=== PATIENT | male | born 1980 | race Caucasian/White ===

== ENCOUNTER 2020-07-07 12:04 | Day surgery (SDC) | payer MEDICAID, SELFPAY ==
--- NOTE | 2020-07-06 08:51 | HO.ANESPROP2 ---
Documented by User: Ariana Acevedo 07/06/20 09:10 HPI - Anesthesia Eval Consult details Narrative: 40yo M for EGD and Colonoscopy: unintentional weight loss PMFSH Past Medical History Medical History Back pain Bronchitis WICK (dyspnea on exertion) GERD (gastroesophageal reflux disease) Hyperkalemia Hypertension Palpitations Surgical History Surgical History H/O lumbosacral spine surgery Social History Social History Smoking Status: Former smoker Smoked in Last 30 Days: No Smoking Quit Date: 7 months ago Use of substances other than those prescribed or required for medical reasons: No Advance Directives: No Advance Directives Information Provided: No Meds Allergies Allergy/AdvReac Type Severity Reaction Status Date / Time tramadol [TRAMADOL] Allergy Unknown Gastrointestinal Unverified 07/07/20 12:35 Upset amoxicillin Allergy Rash Verified 07/07/20 12:36 toradol Allergy Unknown Gastrointestinal Uncoded 07/07/20 12:35 Upset Home Medications Medication Instructions Recorded Confirmed Type albuterol sulfate 2 puff INHALATION Q4-6H PRN 07/06/20 07/06/20 History bupropion HCl 150 mg PO BID 07/06/20 07/06/20 History cetirizine 10 mg PO DAILY 07/06/20 07/06/20 History cyclobenzaprine 10 mg PO TID 07/06/20 07/06/20 History fluticasone propionate [Flonase 1 spray INTRANASAL DAILY 07/06/20 07/06/20 History Allergy Relief] fluticasone propionate [Flovent 1 puff INHALATION BID 07/06/20 07/06/20 History HFA] lisinopril 5 mg PO DAILY 07/06/20 07/06/20 History nabumetone 750 mg PO BID 07/06/20 07/06/20 History omeprazole 20 mg PO BID 07/06/20 07/06/20 History oxycodone-acetaminophen [Percocet] 1 tab PO BID PRN 07/06/20 07/06/20 History Exam Exam Date and Time: July 06, 2020 0851 Assessment and Plan Assessment Anesthesia Assessment: Chart Reviewed Documented by User: John Garces MD 07/07/20 13:15 PMFSH Past Medical History Medical History Back pain Bronchitis WICK (dyspnea on exertion) GERD (gastroesophageal reflux disease) Hyperkalemia Hypertension Palpitations Surgical History Surgical History H/O lumbosacral spine surgery Social History Social History Smoking Status: Former smoker Smoked in Last 30 Days: No Smoking Quit Date: 7 months ago Use of substances other than those prescribed or required for medical reasons: No Advance Directives: No Advance Directives Information Provided: No Meds Allergies Allergy/AdvReac Type Severity Reaction Status Date / Time tramadol [TRAMADOL] Allergy Unknown Gastrointestinal Unverified 07/07/20 12:35 Upset amoxicillin Allergy Rash Verified 07/07/20 12:36 toradol Allergy Unknown Gastrointestinal Uncoded 07/07/20 12:35 Upset Home Medications Medication Instructions Recorded Confirmed Type albuterol sulfate 2 puff INHALATION Q4-6H PRN 07/06/20 07/06/20 History bupropion HCl 150 mg PO BID 07/06/20 07/06/20 History cetirizine 10 mg PO DAILY 07/06/20 07/06/20 History cyclobenzaprine 10 mg PO TID 07/06/20 07/06/20 History fluticasone propionate [Flonase 1 spray INTRANASAL DAILY 07/06/20 07/06/20 History Allergy Relief] fluticasone propionate [Flovent 1 puff INHALATION BID 07/06/20 07/06/20 History HFA] lisinopril 5 mg PO DAILY 07/06/20 07/06/20 History nabumetone 750 mg PO BID 07/06/20 07/06/20 History omeprazole 20 mg PO BID 07/06/20 07/06/20 History oxycodone-acetaminophen [Percocet] 1 tab PO BID PRN 07/06/20 07/06/20 History Exam Airway Mallampati Class: II TM Dist: >3cm Neck ROM: Full Loose/Missing/Broken Teeth: No Heart: rrr Lungs: nl Other: ao Assessment and Plan Assessment Anesthesia Assessment: Anesthesia Plan Discussed and Chart Reviewed Final Anesthetic Review NPO: Yes ASA Class: II Final Preanesthetic Review: No Changes in Pt Med Stat, Meds/Allgs Chart Reviewed, Consent Obtained/Reviewed and Anes Risks/Benef Reviewed Patient Risk: Low Procedure Risk: Low Anesthetic Plan Anesthetic Plan: MAC: Disposition: Standard PACU
[2020-07-07 12:22] VITALS: BP 124/80; PULSE 94; RESP 16; TEMP 36.8; O2SAT 98; BMI 28.5
[2020-07-07] MEDS: Lactated Ringers 1,000 ML 100 ML IVCONT (12:41)
--- NOTE | 2020-07-07 12:42 | MHC.SHP ---
Pre-Procedural Eval Section B Chief Complaint: Weight Loss, Epigastric Pain Relevant Family History (Specify if Yes): No Relevant Social History: None Present Medications: see Short Stay Collaborative assessment Medical History: Significant History (HTN, knee pain) History of Previous Operations: Relevant previous surgery/procedure and date(s) (back surgerym, umbilical hernia repair) Allergies: Allergies Allergy/AdvReac Type Severity Reaction Status Date / Time tramadol [TRAMADOL] Allergy Unknown Gastrointestinal Unverified 07/07/20 12:35 Upset amoxicillin Allergy Rash Verified 07/07/20 12:36 toradol Allergy Unknown Gastrointestinal Uncoded 07/07/20 12:35 Upset Review of Systems Sugical H&P ROS: Negative: Constitution, Cardiovascular, Respiratory, Neurological, Psychiatric, Hem-Onc, Allergic/Immunologic, Gastrointestinal, Genitourinary, Musculoskeletal, Integumentary, Endocrine and Eyes/Ears/Nose/Throat Exam Surgical H&P Exam: Normal: HEENT, Normal: Heart, Normal: Lungs, Normal: Extremities, Normal: Abdomen, Normal: Skin and Normal: Neurological Plan Diagnosis/Plan: Unchanged Patient has been examined and remains a candidate for the planned procedure
--- NOTE | 2020-07-07 13:26 | PM.OP ---
Brief Operative Note Date of procedure: 07/07/20 Pre-op diagnosis: epigastric pain, reflux, altered bowel habit, weight loss Post-op diagnosis: same Procedure: egd,colon see op note Surgeon: Shantal Joshi MD Anesthesia: MAC Estimated blood loss (mL): 0 Condition: stable Disposition: PACU
--- NOTE | 2020-07-07 13:27 | P.OP_ITS ---
Operative Note Operative Note Narrative: Operative Information Procedure Description: EGD, Colonoscopy FLEXIBLE TRANSORAL UPPER GASTROINTESTINAL ENDOSCOPY AND COLONOSCOPY PROCEDURE NOTE UPPER ENDOSCOPY Consent: Indications for the procedure and potential complications of bleeding, perforation, reaction to medications and missed diagnosis were discussed with the patient and informed consent was obtained. Instrument: Olympus GIF H 190 J mid size upper endoscope Monitoring: Vital signs and clinical assessment, continuous EKG monitoring, Pulse oximetry, Carbon Dioxide monitoring and blood pressure monitoring were done throughout the procedure. Procedure: The patient was placed in the left lateral decubitis position and pre-procedure medications were administered and a bite block was placed. The endoscope was inserted into the mouth and advanced under direct vision to the third part of duodenum. A careful inspection was made as the upper endoscope was withdrawn including a retroflexed examination of the proximal stomach; Findings and interventions are described below. Findings: Larynx:normal Esophagus: GE junction at 40 cm, diaphragm hiatus at 40 cm, salmon pink mucosa consistent with barretts esophagus, short segment length about 2 cm, bx taken. small esophageal inlet patch seen, Stomach: Patchy erythema. Biopsies were obtained. Grade 2 flap valve on retroflexed examination of the cardia. Duodenum: duodenitis, bx taken Intervention: Biopsies as noted above COLONOSCOPY Instrument: Olympus variable stiffness pediatric scope 190L Colonoscopy Monitoring: Vital signs and clinical assessment, continuous EKG monitoring, Pulse oximetry, Carbon Dioxide monitoring and blood pressure monitoring were done throughout the procedure. Colon withdrawal time was 10 minutes. Procedure: The patient was placed in the left lateral decubitis position and pre-procedure medications were administered. After a digital rectal examination of the ano-rectum, the video colonoscope was inserted into the rectum and advanced through the colon to the cecum/TI. The colonoscope was slowly withdrawn in a retrograde panoramic fashion and the colon mucosa was carefully examined including a retroflexed view of the rectum. Findings and interventions are described below. Procedure Difficulty: Findings: random colon bx taken Terminal Ileum-normal, bx taken Cecum:normal Ascending Colon: normal Transverse Colon -normal Descending Colon:normal Sigmoid Colon: normal Rectum: Retroflexion with small internal hemorrhoids, grade II Anorectum - internal hemorrhoids seen on anterior view Colon preparation: [place] Bowel Preparation Scale Right colon; 3 Transverse colon: 3 Left colon; 3 (0 = Unprepared colon segment with mucosa not seen due to solid stool that cannot be cleared. 1 = Portion of mucosa of the colon segment seen, but other areas of the colon segment not well seen due to staining, residual stool and/or opaque liquid. 2 = Minor amount of residual staining, small fragments of stool and/or opaque liquid, but mucosa of colon segment seen well. 3 = Entire mucosa of colon segment seen well with no residual staining, small fragments of stool or opaque liquid) Impression and Post Procedure Diagnosis: Endoscopy Findings: gastritis esophageal inlet patch duodenitis barretts esopahgus Colonoscopy Findings: internal hemorrhoids Plan: Await Pathology results Repeat Colonoscopy in 10 years or earlier if clinically indicated High fiber diet leaflet avoid straining at stool, epsom salts and sitz bath prn, anusol supps or cream prn stay on PPI Above findings were reviewed with the patient and relevant handouts were provided if indicated.
[2020-07-07 13:34] VITALS: BP 103/65; PULSE 98; RESP 16; TEMP 36.7; O2SAT 99
[2020-07-07 13:52] VITALS: BP 114/77; PULSE 99; RESP 18; O2SAT 100
--- NOTE | 2020-07-07 14:18 | HO.POSTANES ---
Post Anesthesia Evaluation Post Anesthesia Evaluation Vital Signs: Vital Signs Temp Pulse Resp BP Pulse Ox 07/07/20 13:52 98.0 F 99 18 114/77 100 07/07/20 13:34 98.0 F 98 16 103/65 99 07/07/20 12:22 98.3 F 94 16 124/80 98 Anesthesia: Monitored Mental Status: Awake Pain Control: Satisfactory Nausea/Vomiting: None Hydration: Adequate Anesthesia-Related Issues: No Anes. Related Issues
== END 2020-07-07 14:49 | disposition home or self-care (01) ==
PROVIDERS: PCP Nurse Practitioner Family; Visit Provider Internal Medicine Gastroenterology
PROC: (CPT 45380; principal; 2020-07-07 13:00)
DX: R63.4 Abnormal weight loss (principal); K64.1 Second degree hemorrhoids; K29.50 Unspecified chronic gastritis without bleeding; K29.80 Duodenitis without bleeding; K22.70 Barrett's esophagus without dysplasia; K21.00 Gastro-esophageal reflux disease with esophagitis, without bleeding; K44.9 Diaphragmatic hernia without obstruction or gangrene; Q39.8 Other congenital malformations of esophagus; I10 Essential (primary) hypertension; Z87.891 Personal history of nicotine dependence; Z79.51 Long term (current) use of inhaled steroids; Z79.899 Other long term (current) drug therapy; Z88.1 Allergy status to other antibiotic agents; Z88.8 Allergy status to other drugs, medicaments and biological substances
CPT/HCPCS: 45380; 43239; 88305; 88342

== ENCOUNTER → 2020-07-09 13:03 | Outpatient (REF) | payer MEDICAID, SELFPAY ==
--- NOTE | 2020-07-09 13:08 | CA_ITS ---
Transthoracic Echocardiogram Patient (Last, First, Middle): David Rizvi, Gender: Male Date of : 1980 Age: 40 Procedure Date: 07/09/2020 Procedure Type: Transthoracic Echocardiogram Location: OP Height: 187.96 cm Weight: 100.7 kg BSA: 2.27 m2 Heart Rate: bpm BP: 126 / 68 mmHg Hvac Mechanic: Referring MD: Valeria Padgett DO Symptoms: ITS.REASON Study Quality: Good ECG Rhythm: Sinus Conclusions: - The left ventricular systolic function is normal. The visually estimated ejection fraction is between 60-65%. - No obvious valvular pathology seen on this study. Findings Left Ventricle Normal left ventricular cavity size. There is mildly increased left ventricular wall thickness. The left ventricular systolic function is normal. The visually estimated ejection fraction is between 60-65%. There is no evidence of regional wall motion abnormalities. Diastolic function is normal for age. Right Ventricle Normal right ventricular cavity size and systolic function. Atria The left atrium is normal in size. The right atrium is normal in size. Aortic Valve There is a normal trileaflet aortic valve. There is no aortic valve stenosis. There is no aortic valve regurgitation. Mitral Valve The mitral valve appears normal. There is trace mitral valve regurgitation. There is no mitral valve stenosis. Pulmonic Valve The pulmonic valve was not well visualized. Tricuspid Valve Normal tricuspid valve structure. There is trace tricuspid valve regurgitation. The pulmonary artery systolic pressure is normal. Great Vessels The aortic annulus, sinuses of valsalva, and asc aorta are normal in size. Venous The inferior vena cava is normal in size and collapses greater than 50% with inspiration. Pericardium/Pleural There is no evidence of pericardial effusion. Prior Study Comparison No prior study available for comparison. Recommendations, Care & Conclusions No obvious valvular pathology seen on this study. Measurements 2D Linear Measurements IVSd: 1.34 0.6-0.9/0.6-1.0 cm LVIDd: 4.03 3.9-5.3/4.2-5.9 cm LVIDd Index: 1.78 2.4-3.2/2.2-3.1 cm/m2 LVIDs: 2.76 2.0-3.6 cm LVPWd: 1.25 0.7-1.1 cm Ao Root: 3.50 2.1-3.5 cm LA Diam: 3.70 2.7-3.8/3.0-4.0 cm LAIDs Index: 1.63 1.5-2.3 cm/m2 LV Mass: 233.65 67-162/88-224 g LV Mass Index: 102.93 43-95/49-115 g/m2 LVOT Diam: 2.30 3.0+(-)1.3 cm Mitral Valve MV Pk E: 0.69 MV PK A: 0.61 MV Decel Time: 190.00 E/A: 1.10 E'Lateral: 15.30 E'Medial: 10.50 E/E' Med: 6.60 E/E' Lat: 4.50 PHT: 56.00 MVA PHT: 3.93 Decel [place]: 3.62 Aortic Valve AoV Pk Forrest: 1.43 AoV Mn Forrest: 0.97 AoV VTI: 0.29 AoV Pk Grad: 8.00 Aov Mn Grad: 5.00 ALONZO Cont.VTI: 2.44 LVOT LVOT Pk Forrest: 0.89 LVOT Mn Forrest: 0.58 LVOT VTI: 0.17 LVOT Pk Grad: 3.00 LVOT Mn Grad: 2.00 LVOT Diam: 2.30 LVOT Area: 4.15 Diastolic Function MV Pk E: 0.69 MV Pk A: 0.61 E/A: 1.10 E'Medial: 10.50 E/E' Med: 6.60 E' Laterial: 15.30 E/E' Lat: 4.50 Tricuspid Valve TR Pk Forrest: 2.22 TR Pk Grad: 20.00 RA Press: 3.00 RVSP: 23.00 Great Vessels Aorta Ao Root-2D: 3.50 2.0-3.7 cm Pulmonary Valve PV Pk Forrest: 1.05 Peak PV Grad: 4.00 Updated in Other Vendor System with Status of Final Austin Guidry MD electronically signed on 07/10/2020 1:35:25 PM with status of Final
== END ==
LOC: HO.CARD 13:03
PROVIDERS: PCP Family Medicine; Visit Provider Family Medicine
DX: R06.02 Shortness of breath (principal)
CPT/HCPCS: 93306

== ENCOUNTER 2021-08-02 09:29 | Outpatient (REF) | payer MEDICAID, SELFPAY ==
[2021-08-02 12:54] LABS: MANUAL DIFF FLAG NO
[2021-08-02 13:13] LABS: Basophils Percent Auto 0.5 % (0-2); Eosinophils Absolute Auto 0.1 X10*3/uL (0.0-0.4); Eosinophils Percent Auto 2.1 % (0-4); Hematocrit 46.1 % (42.0-52.0); Hemoglobin 15.4 g/dl (14.0-18.0); Imm Gran Abs Auto 0.02 X10*3/uL (0.00-0.03); Imm Gran Pct Auto 0.3 % (0.0-0.4); Lymphocytes Absolute Auto 1.6 X10*3/uL (1.2-4.9); Mean Corpuscular HGB Conc 33.4 g/dl (31.0-36.0); Mean Corpuscular Hemoglobin 27.1 pg (27.0-33.0); Mean Corpuscular Volume 81.2 fL (80.0-98.0); Mean Platelet Volume 11.6 fL (9.4-12.4); Monocytes Absolute Auto 0.4 X10*3/uL (0.1-1.2); Monocytes Percent Auto 6.9 % (2-11); Neutrophils Absolute Auto 4.1 x10*3/uL (2.0-8.3); Neutrophils Percent Auto 65.2 % (45-73); Platelet Count 252 X10*3/uL (160-400); Red Blood Count 5.68 X10*6/uL (4.60-5.80); Red Cell Distribution Width 12.8 % (11.0-16.0); White Blood Count 6.2 X10*3/uL (4.8-10.8)
[2021-08-02 13:37] LABS: Alanine Aminotransferase 17 U/L (0-40); Albumin Level 4.8 g/dL (3.5-5.0); Alkaline Phosphatase 75 U/L (39-117); Anion Gap 12 (12-20); Aspartate Amino Transferase 16 U/L (5-37); Bilirubin Total 1.6 mg/dL (0.0-1.0); Blood Urea Nitrogen 11 mg/dL (9-16); C Reactive Protein 0.39 mg/dL (< or = 0.50); Calcium 9.7 mg/dL (8.4-10.2); Carbon Dioxide 26 mmol/L (22-29); Chloride 105 mmol/L (96-108); Estimated Glomerular Filt Rate > 60; Glucose Random 95 mg/dL (60-115); Potassium 4.4 mmol/L (3.3-5.1); Sodium 139 mmol/L (135-145); Total Protein 7.5 g/dL (6.5-8.0)
[2021-08-02 13:56] LABS: Erythrocyte Sedimentation Rate 3 MM/HR (0-15)
[2021-08-02 13:57] LABS: Ferritin 183 ng/mL (20-250); Vitamin D 25-OH Total 29.2 ng/mL (>30)
[2021-08-02 14:22] LABS: Folate 16.2 ng/mL (> or = 4.0); Vitamin B12 333 pg/mL (200-900)
[2021-08-05 16:27] LABS: Zinc 75 mcg/dL (60-130)
[2021-08-05 16:42] LABS: Vitamin B6 8.5 ng/mL (2.1-21.7)
[2021-08-06 08:26] LABS: Gliadin Deamidated IgA Ab 39.7 U/mL; Gliadin Deamidated IgG Ab 28.1 U/mL
[2021-08-06 14:01] LABS: Vitamin B5 (Pantothenic Acid) <40 ng/mL (<275)
[2021-08-06 18:05] LABS: Vitamin C 0.4 mg/dL (0.2-2.1)
[2021-08-08 03:16] LABS: Alpha-Tocopherol 9.7 mg/L (5.7-19.9); Beta-Gamma Tocopherol 1.1 mg/L (<=4.3)
[2021-08-08 14:42] LABS: Nicotinamide <20 ng/mL; Vit B3 - Nicotinic Acid <20 ng/mL
[2021-08-08 18:06] LABS: Vitamin A 51 mcg/dL (38-98)
== END 2021-08-02 09:30 | disposition home or self-care (01) ==
LOC: HO.LAB 09:29
PROVIDERS: PCP Internal Medicine Geriatric Medicine; Visit Provider Internal Medicine Gastroenterology
DX: K29.80 Duodenitis without bleeding (principal); R63.4 Abnormal weight loss; K75.81 Nonalcoholic steatohepatitis (NASH)
CPT/HCPCS: 36415; 80053; 82180; 82306; 82607; 82728; 82746; 83516; 84207; 84446; 84590; 84591; 84630; 85025; 85652; 86140

== ENCOUNTER 2021-08-02 10:16 | Outpatient (REF) | payer MEDICAID, SELFPAY | END 2021-08-02 10:17 | disposition home or self-care (01) | LOC: HO.LAB 10:16 | PROVIDERS: PCP Internal Medicine Geriatric Medicine; Visit Provider Internal Medicine | DX: Z20.822 Contact with and (suspected) exposure to COVID-19 (principal); K29.80 Duodenitis without bleeding; R63.4 Abnormal weight loss | CPT/HCPCS: 99212; C9803; U0003; U0005 ==